=== PATIENT | male | born 1975 | race Caucasian/White ===

== ENCOUNTER 2017-03-12 17:58 | Emergency (ER) | payer MEDICAID ==
[~2017-03-12] VITALS: Ht 154.9 cm; Wt 64.2 kg
[2017-03-12 20:11] VITALS: BP 125/87
== END 2017-03-12 20:11 | disposition home or self-care (01) ==
LOC: ED 17:58
DX: S01.01XA Laceration without foreign body of scalp, initial encounter (principal); X58.XXXA Exposure to other specified factors, initial encounter; Y93.89 Activity, other specified; Y92.89 Other specified places as the place of occurrence of the external cause; Y99.8 Other external cause status
CPT/HCPCS: 90715

== ENCOUNTER 2018-01-28 13:27 | Emergency (ER) | payer OTHER ==
[~2018-01-28] VITALS: Ht 154.9 cm; Wt 65.3 kg
[2018-01-28 13:36] VITALS: Ht 154.9 cm; Wt 65.3 kg
[2018-01-28 16:28] VITALS: BP 130/88
== END 2018-01-28 16:28 | disposition home or self-care (01) ==
LOC: ED 13:27
DX: M54.5 Low back pain (principal)
CPT/HCPCS: J1885

== ENCOUNTER 2018-03-20 22:19 | Emergency (ER) | payer OTHER ==
[~2018-03-20] VITALS: Ht 154.9 cm; Wt 68.0 kg
[2018-03-20 22:25] VITALS: Ht 154.9 cm; Wt 68.0 kg
[2018-03-20 22:57] VITALS: BP 133/68
== END 2018-03-20 22:57 | disposition home or self-care (01) ==
LOC: ED 22:19
DX: M54.41 Lumbago with sciatica, right side (principal)
CPT/HCPCS: J1885